=== PATIENT | female | born 1965 | race Two or more races ===

== ENCOUNTER 2021-09-14 19:53 | Emergency (ER) | payer OTHER ==
[~2021-09-14] VITALS: Ht 162.6 cm; Wt 54.0 kg
--- NOTE | 2021-09-14 20:10 | NUR ---
BIBRA 41 FROM HOME C/O PALPITATIONS HR 145 AT HOME, UPON TRIAGE HR NOTED AT 133HR. PATIENT ALERT AND ORIENTED X3. DENIES ANY CHEST PAIN WAS PLACED ON A MONITOR AND COMFORTABLE.
[2021-09-14] MEDS: ONDANSETRON HCL/PF 4 MG/2 ML VIAL IVP ONE (20:22)
[2021-09-14] MEDS: IV NS 0.9% 1,000 ML BAG IV ONE (20:22)
--- NOTE | 2021-09-14 20:23 | NUR ---
BLOOD COLLECTED AND SENT TO LAB
[2021-09-14 20:40] LABS: BASOPHILS # (AUTO) 0.1 K/uL (0.0-0.2); BASOPHILS % (AUTO) 0.6 % (0.0-2.0); EOSINOPHILS % (AUTO) 1.4 % (0.0-6.0); HEMATOCRIT 40 % (33-45); HEMOGLOBIN 12.8 g/dL (11.5-14.8); LYMPHOCYTES # (AUTO) 1.2 K/uL (0.8-4.8); LYMPHOCYTES % (AUTO) 9.8 % (20.0-44.0); MEAN CORPUSCULAR HGB CONC 32 g/dl (31.0-36.0); MEAN CORPUSCULAR VOLUME 88 fL (82-100); MONOCYTES # (AUTO) 0.6 K/uL (0.1-1.30); MONOCYTES % (AUTO) 4.7 % (2.0-12.0); NEUTROPHILS # (AUTO) 10.3 K/uL (1.8-8.9); NEUTROPHILS % (AUTO) 83.5 % (43.0-81.0); PLATELET COUNT (AUTO) 482 K/uL (150-450); RED BLOOD CELL COUNT(AUTO) 4.56 MIL/uL (4.0-5.2); WHITE BLOOD COUNT (AUTO) 12.4 K/uL (4.3-11.0)
--- NOTE | 2021-09-14 20:48 | NUR ---
DAUGHTER AT BEDSIDE WITH
[2021-09-14 20:54] LABS: ALBUMIN 3.6 g/dL (3.4-5.0); BILIRUBIN,DIRECT 0.6 mg/dL (0.0-0.2); BILIRUBIN,TOTAL 1.1 mg/dL (0.2-1.0); CALCIUM, SERUM 9.7 mg/dL (8.5-10.1); CREATININE 0.8 mg/dL (0.6-1.3); POTASSIUM 4.4 mmol/L (3.5-5.1)
--- NOTE | 2021-09-14 21:10 | NUR ---
Patient discharged to home in stable condition. Written and verbal after care instructions given. Patient verbalizes understanding of instruction.
--- NOTE | 2021-09-14 21:16 | NUR ---
CALLED [facility] FOR TRANSPORTATION BACK HOME. ETA 30-45 MINUTES.
--- NOTE | 2021-09-14 22:53 | NUR ---
PATIENT BEING TRANSFERRED VIA AMBULANCE
--- NOTE | 2021-09-14 22:53 | NUR ---
GAVE REPORT TO EMS
[2021-09-14 22:55] VITALS: BP 129/90
== END 2021-09-14 22:57 | disposition home or self-care (01) ==
LOC: ER 19:56
DX: C56.9 Malignant neoplasm of unspecified ovary (principal); E86.0 Dehydration; R00.0 Tachycardia, unspecified
CPT/HCPCS: 36415; 80048; 80076; 82962; 83690; 85025; 93005; 96361; 96374; 99284; J2405; J7030

== ENCOUNTER 2021-09-17 00:38 | Emergency (ER) | payer OTHER ==
[~2021-09-17] VITALS: Ht 157.5 cm; Wt 45.4 kg
--- NOTE | 2021-09-17 01:01 | NUR ---
JOEL C/O PORT-A-CATH MALFUCNTION. STATES SHE MADE A SUDDEN MOVEMENT WHILE SLEEPING WHICH CAUSED PAIN TO THE CATHETER SITE AND SHE BELIEVES THE CATHETER MAY HAVE MOVED. SHE ALSO STATES INCREASED PAIN UPON INFUSION. PT PLACED ON MONITOR AND ALL V/S STABLE AT THIS TIME. WAS AT THE BEDSIDE FOR EVALUATION.
--- NOTE | 2021-09-17 02:16 | NUR ---
BOWDEN NEEDLE WAS CHANGED PER PT/ DAUGHTER'S REQUEST AND MD'S ORDER. PT TOLERATED THE PROCEDURE WELL. GOOD BLOOD DRAW WAS NOTED AND PORT IS FLUSHING WELL.
--- NOTE | 2021-09-17 03:05 | NUR ---
Patient discharged to home in stable condition. Written and verbal after care instructions given. Patient verbalizes understanding of instruction. Pt assisted with wheelchair to car without incident.
[2021-09-17 03:06] VITALS: BP 142/87
== END 2021-09-17 03:07 | disposition home or self-care (01) ==
LOC: ER 00:41
DX: Z45.2 Encounter for adjustment and management of vascular access device (principal); C79.60 Secondary malignant neoplasm of unspecified ovary; Z88.6 Allergy status to analgesic agent
CPT/HCPCS: 71045-TC